=== PATIENT | male | born 1995 | race Asian ===

== ENCOUNTER → 2017-08-10 | Outpatient (CLI) | payer OTHER ==
--- NOTE | 2017-08-10 16:01 | DIAGNOSTIC IMAGING REPORT ---
R SHOULDER MIN 2 VIEWS ROUTINE CLINICAL HISTORY: RIGHT SHOULDER PAIN pain COMPARISON: None. DISCUSSION: Minimal grade 1 separation right acromioclavicular joint. Glenohumeral joint is unremarkable. No evidence for acute fracture or dislocation. There is no evidence for soft tissue swelling. IMPRESSION: Grade 1 separation right acromioclavicular joint. No evidence for fracture. The above report was generated using voice recognition software. It may contain grammatical, syntax or spelling errors. Electronically signed by: Get Rojas M.D. 08/10/2017 3:59 PM Dictated Date/Time: 08/10/2017 3:58 PM
== END | disposition home or self-care (01) ==
LOC: C.RAD 15:33
PROVIDERS: ATTEND Family Medicine
DX: M25.511 Pain in right shoulder (principal); S43.51XA Sprain of right acromioclavicular joint, initial encounter; X58.XXXA Exposure to other specified factors, initial encounter